=== PATIENT | female | born 1990 | race African-American/Black ===

== ENCOUNTER 2017-01-30 02:09 | Emergency (ER) | payer OTHER ==
[~2017-01-30] VITALS: Ht 165.1 cm; Wt 55.7 kg
[~2017-01-30 02:09] MED LIST: MACROBID100 MG PO; MOTRIN600 MG PO; NAPROXEN500 MG PO
[2017-01-30] MEDS ORDERED: PEN-VEE K,VEET500 MG PO (02:36)
[2017-01-30] MEDS ORDERED: MOTRIN800 MG PO (02:36)
[2017-01-30 02:45] VITALS: BP 120/78
== END 2017-01-30 02:46 | disposition home or self-care (01) ==
LOC: EME 02:09
DX: S02.5XXA Fracture of tooth (traumatic), initial encounter for closed fracture (principal); K02.9 Dental caries, unspecified; X58.XXXA Exposure to other specified factors, initial encounter
CPT/HCPCS: 99281; 99283

== ENCOUNTER 2017-07-30 12:24 | Emergency (ER) | payer OTHER ==
[~2017-07-30] VITALS: Ht 165.1 cm; Wt 59.0 kg
[~2017-07-30 12:24] MED LIST changes: +MOTRIN800 MG PO; +PEN-VEE K,VEET500 MG PO
[2017-07-30] MEDS ORDERED: FIORICET 50-301 EACH PO (14:36)
[2017-07-30 15:20] VITALS: BP 142/88
== END 2017-07-30 15:22 | disposition home or self-care (01) ==
LOC: EME 12:24
DX: R51 Headache (principal)
CPT/HCPCS: 99281; 99284